=== PATIENT | male | born 1965 | race American Indian/Alaskan Native ===

== ENCOUNTER 2017-10-09 13:23 | Inpatient (IN) | payer MEDICAID, OTHER ==
[2017-10-09 13:27] VITALS: BMI 20.1
[2017-10-09] MEDS ORDERED: Sodium Chloride 0.9% 1,000 ML IV ONE (13:57)
[2017-10-09] MEDS ORDERED: Sodium Chloride 0.9% 1,000 ML ONE (14:05)
[2017-10-09 14:45] LABS: BASO % 1.1 % (0.0-2.0); EOS % 0.4 % (0.0-4.0); HEMOGLOBIN 12.5 g/dL (12.0-18.0); LYMPH # 0.5 K/uL (1.0-4.3); LYMPH % 16.9 % (20.0-40.0); MEAN CELL VOLUME 91.6 fL (80.0-94.0); MEAN CORPUSCULAR HEMOGLOBIN 32.2 pg (27.0-31.0); MEAN CORPUSCULAR HGB CONC 35.1 g/dL (33.0-37.0); MEAN PLATELET VOLUME 10.3 fL (7.2-11.7); MONO # 0.1 K/uL (0.0-0.8); MONO % 4.5 % (0.0-10.0); NEUT # 2.4 K/uL (1.8-7.0); NEUT % 77.1 % (50.0-75.0); RBC 3.9 Mil/uL (4.40-5.90); RED CELL DISTRIBUTION WIDTH 13.8 % (11.5-14.5); WHITE BLOOD COUNT 3.2 K/uL (4.8-10.8)
[2017-10-09 14:54] LABS: PROTHROMBIN TIME 11.3 SECONDS (9.7-12.2)
[2017-10-09 15:23] LABS: URINE BILIRUBIN NEGATIVE (NEGATIVE); URINE BLOOD 1+ (NEGATIVE); URINE CLARITY Hazy (Clear); URINE COLOR Amber (YELLOW); URINE GLUCOSE (UA) NORMAL (Normal); URINE HYALINE CAST 0-2 /lpf (0-2); URINE LEUKOCYTE ESTERASE NEG Leu/uL (Negative); URINE PROTEIN 1+ mg/dL (NEGATIVE)
[2017-10-09 15:30] LABS: BARBITURATES, UR NEGATIVE (NEGATIVE); BENZODIAZEPINES, UR NEGATIVE (NEGATIVE); OPIATES, UR NEGATIVE (NEGATIVE); PHENCYCLIDINE, UR NEGATIVE (NEGATIVE)
--- NOTE | 2017-10-09 15:36 | US ---
HISTORY: alcoholic, ? cirrhosis/GB/panc COMPARISON: None. TECHNIQUE: Sonographic evaluation of the right upper quadrant of the abdomen. FINDINGS: LIVER: Measures 16.8 cm in length. Mildly increased echogenicity of the liver parenchyma suggests diffuse fatty infiltration. No mass. No intrahepatic bile duct dilatation. GALLBLADDER: Unremarkable. No gallstones. COMMON BILE DUCT: Measures 2.3 mm. No stones. No dilatation. PANCREAS: The tail of the pancreas is obscured by overlying bowel gas with remainder unremarkable. RIGHT KIDNEY: Measures 11.7 cm in length. Normal echogenicity. No calculus, mass, or hydronephrosis. AORTA: No aneurysmal dilatation. IVC: Unremarkable. OTHER FINDINGS: None . IMPRESSION: 1. Hepatic steatosis suggested. Liver is otherwise unremarkable appearing. 2. Unremarkable gallbladder and common bile duct. 3. Partial imaging of the pancreas.
[2017-10-09 15:56] LABS: ALT/SGPT 554 U/L (21-72); BLOOD UREA NITROGEN 27 mg/dL (9-20); CALCIUM 9.1 mg/dl (8.6-10.4); GFR AFRICAN-AMERICAN > 60; GFR NON-AFRICAN AMERICAN > 60; LIPASE 1302 U/L (23-300)
[2017-10-09 16:06] LABS: BILIRUBIN,DIRECT 1.1 mg/dL (0.0-0.4)
[2017-10-09 16:25] LABS: AST/SGOT 1109 U/L (17-59)
--- NOTE | 2017-10-09 16:44 | C.PDOC ---
History Of Present Illness 52-year-old male, presents to the emergency department c/o poor appetite and feeling irritable for the past week. Patient has a Hx of EtOH abuse, drinking 15 bottles a day for 20 years, and stopped suddenly one week ago due to periumbilical pain. Denies Hx of pancreatitis, hallucinations. Time Seen by Provider: 10/09/17 13:45 Chief Complaint (Nursing): GI Problem History Per: Patient, EMS Onset/Duration Of Symptoms: Days Current Symptoms Are (Timing): Still Present Past Medical History Reviewed: Historical Data, Nursing Documentation, Vital Signs Vital Signs: Last Vital Signs Temp 98.5 F 10/09/17 18:28 Pulse 96 H 10/09/17 18:28 Resp 18 10/09/17 18:28 BP 126/96 H 10/09/17 18:28 Pulse Ox 99 10/09/17 18:28 Family History: States: No Known Family Hx - Social History Hx Alcohol Use: Yes Hx Substance Use: No - Immunization History Hx Tetanus Toxoid Vaccination: No Hx Influenza Vaccination: No Hx Pneumococcal Vaccination: No Review Of Systems Constitutional: Negative for: Fever Cardiovascular: Negative for: Chest Pain Respiratory: Negative for: Shortness of Breath Gastrointestinal: Positive for: Abdominal Pain. Negative for: Vomiting Musculoskeletal: Negative for: Back Pain Physical Exam - Physical Exam Appears: Non-toxic, No Acute Distress, Other (Thin, black male. No apparent distress) Skin: Warm, Dry, No Rash, No Jaundice Head: Normacephalic Eye(s): bilateral: PERRL Nose: Normal Oral Mucosa: Dry Lips: Normal Appearing Neck: Normal ROM Cardiovascular: Rhythm Regular, No Murmur Respiratory: Normal Breath Sounds, No Accessory Muscle Use Extremity: Normal ROM, No Deformity, No Swelling Neurological/Psych: Oriented x3 ED Course And Treatment - Laboratory Results Result Diagrams: 10/09/17 14:41 10/09/17 15:37 Lab Interpretation: Abnormal (lipase 1300, D. Bili 1.1, T Bili 1.5, AST 1100, ALT 550) O2 Sat by Pulse Oximetry: 100 (RA) Pulse Ox Interpretation: Normal - Radiology CXR: Interpreted by Me CXR Interpretation: Yes: No Acute Disease - Other Rad abd x 2 X-Ray: Interpreted by Me (scant stool, no obst/FA) Progress Note: librium 50 mg PO, IVF, protonix IV Reevaluation Time: 16:43 Reassessment Condition: Improved - Physician Consult Information Outcome Of Conversation: 1630: d/w Hospitalist- Dr. Williams Thurman, ok to admit. Medical Decision Making Medical Decision Making: alcoholic pancreatitis normal epigastric US ETOH withdrawal vs mild dehydration, improved with Librium PO and IVF No s/s of Delirium Disposition Doctor Will See Patient In The: Hospital Counseled Patient/Family Regarding: Studies Performed, Diagnosis - Disposition Disposition: HOSPITALIZED Disposition Time: 16:44 Condition: GOOD - Clinical Impression Clinical Impression: Pancreatitis, alcoholic, acute, Alcohol withdrawal - Scribe Statement The provider has reviewed the documentation as recorded by the Scribe (Erik Marks) All medical record entries made by the Scribe were at my direction and personally dictated by me. I have reviewed the chart and agree that the record accurately reflects my personal performance of the history, physical exam, medical decision making, and the department course for this patient. I have also personally directed, reviewed, and agree with the discharge instructions and disposition.
[2017-10-09] MEDS ORDERED: Lactated Ringer's 1,000 ML IV ONE (17:39)
[2017-10-09] MEDS ORDERED: Lactated Ringer's 1,000 ML IV SCH (17:45)
[2017-10-09] MEDS ORDERED: Iohexol 240 (50 ml) PO ONE (18:11)
[2017-10-09] MEDS ORDERED: Iohexol 240 (50 ml) ONE (18:15)
[2017-10-09] MEDS ORDERED: Multivitamin (MVI) 10 ML, Folic Acid 1 MG in Sodium Chloride 0.9% 1,000 ML IV ONE ×2 (18:15→21:52)
[2017-10-09] MEDS: Multiple Vitamins Tab PO SCH (18:17)
[2017-10-09] MEDS ORDERED: Iodixanol 320 MG/ML 100 ML BOTTLE IV ONE (18:25)
--- NOTE | 2017-10-09 19:21 | CP.PCM.HP ---
History of Present Illness - History of Present Illness History of Present Illness: HPI: Patient is a 52 year old male with no past medical history who comes to the ED complaining of abdominal pain and vomiting. States that the vomiting started 2 days ago and for 2 days he has been unable to keep anything down. Today the patient was able to tolerate 2 cups of soup. He states that the emesis is nonbloody. He is also complaining of abdominal pain, epigastric in nature and radiating the back. The pain has resolved by the time he came to the ED. Nothing makes the pain better or worse. He describes the pain as sharp in nature. He is an alcoholic who drinks every day approximately 2 beers and four shots of scotch. He states that he has not drank in 2 weeks. He has a long history of no appetite and states that he likes to drink instead. This is the first time this kind of event has happened to him. No other associated factors. Denies any chest pain, SOB, palpitations, diarrhea, constipation, numbness, weakness, tingling, syncope. PMH: none PSH: None FH: unremarkable SH: denies tobacco and drugs. Drinks 2 beers (Guinness) and 4 black label scotch. Prior works at [employer] but quit after wouldn't change his shift. Lives with . she works for [employer] Meds: none All: none PMD: none FULL CODE makes decisions if the patient is not capable of making decisions for himself. Her name is Ralf Wilson and her phone number is [phone] Present on Admission - Present on Admission Any Indicators Present on Admission: No Review of Systems - Review of Systems Review of Systems: per hpi Past Patient History - Past Social History Smoking Status: Never Smoked - CARDIAC Hx Cardiac Disorders: No - PSYCHIATRIC Hx Substance Use: No - SURGICAL HISTORY Hx Surgeries: No - ANESTHESIA Hx Anesthesia: No Meds Allergies/Adverse Reactions: Allergies Allergy/AdvReac Type Severity Reaction Status Date / Time No Known Allergies Allergy Verified 10/09/17 13:27 Physical Exam - Constitutional Appears: Well - Head Exam Head Exam: ATRAUMATIC, NORMAL INSPECTION, NORMOCEPHALIC - Eye Exam Eye Exam: EOMI, Normal appearance, PERRL Pupil Exam: NORMAL ACCOMODATION, PERRL - ENT Exam ENT Exam: Mucous Membranes Moist, Normal Exam - Neck Exam Neck exam: Positive for: Normal Inspection - Respiratory Exam Respiratory Exam: Clear to Auscultation Bilateral, NORMAL BREATHING PATTERN - Cardiovascular Exam Cardiovascular Exam: REGULAR RHYTHM - GI/Abdominal Exam GI & Abdominal Exam: Normal Bowel Sounds, Soft, Tenderness (tender to deep palpation of the mid epigastrum) - Extremities Exam Extremities exam: Positive for: normal inspection - Back Exam Back exam: NORMAL INSPECTION - Neurological Exam Neurological exam: Alert, CN II-XII Intact, Normal Gait, Oriented x3, Reflexes Normal - Psychiatric Exam Psychiatric exam: Normal Affect, Normal Mood - Skin Skin Exam: Dry, Intact, Normal Color, Warm Results - Vital Signs Recent Vital Signs: Last Vital Signs Temp 98.5 F 10/09/17 18:28 Pulse 96 H 10/09/17 18:28 Resp 18 10/09/17 18:28 BP 126/96 H 10/09/17 18:28 Pulse Ox 100 10/09/17 18:33 - Labs Result Diagrams: 10/09/17 14:41 10/09/17 15:37 Labs: Laboratory Results - last 24 hr 10/09/17 10/09/17 10/09/17 14:41 14:41 14:41 WBC 3.2 L RBC 3.90 L Hgb 12.5 Hct 35.7 MCV 91.6 MCH 32.2 H MCHC 35.1 RDW 13.8 Plt Count 77 L MPV 10.3 Neut % (Auto) 77.1 H Lymph % (Auto) 16.9 L [place] % (Auto) 4.5 Eos % (Auto) 0.4 Baso % (Auto) 1.1 Neut # (Auto) 2.4 Lymph # (Auto) 0.5 L [place] # (Auto) 0.1 Eos # (Auto) 0.0 Baso # (Auto) 0.0 Differential Comment PT 11.3 INR 1.0 APTT 24 Sodium Potassium Chloride Carbon Dioxide Anion Gap BUN Creatinine Est GFR ( Amer) Est GFR (Non-Af Amer) Random Glucose Calcium Total Bilirubin Direct Bilirubin AST ALT Alkaline Phosphatase Total Protein Albumin Globulin Albumin/Globulin Ratio Lipase Urine Color Sally Urine Clarity Hazy Urine pH 5.0 Ur Specific [place] 1.023 Urine Protein 1+ H Urine Glucose (UA) Normal Urine Ketones Negative Urine Blood 1+ H Urine Nitrate Negative Urine Bilirubin Negative Urine Urobilinogen 4.0 Ur Leukocyte Esterase Neg Urine WBC (Auto) 3 Urine RBC (Auto) 5 H Hyaline Casts 0-2 Urine Opiates Screen Urine Methadone Screen Ur Barbiturates Screen Ur Phencyclidine Scrn Ur Amphetamines Screen U Benzodiazepines Scrn U Oth Cocaine Metabols U Cannabinoids Screen Alcohol, Quantitative 10/09/17 10/09/17 10/09/17 14:41 15:37 15:48 WBC RBC Hgb Hct MCV MCH MCHC RDW Plt Count MPV Neut % (Auto) Lymph % (Auto) [place] % (Auto) Eos % (Auto) Baso % (Auto) Neut # (Auto) Lymph # (Auto) [place] # (Auto) Eos # (Auto) Baso # (Auto) Differential Comment PT INR APTT Sodium 134 Potassium 3.5 L Chloride 96 L Carbon Dioxide 26 Anion Gap 16 BUN 27 H Creatinine 1.1 Est GFR ( Amer) > 60 Est GFR (Non-Af Amer) > 60 Random Glucose 98 Calcium 9.1 Total Bilirubin 1.5 H Direct Bilirubin 1.1 H AST 1109 H ALT 554 H Alkaline Phosphatase 87 Total Protein 8.2 Albumin 4.0 Globulin 4.2 H Albumin/Globulin Ratio 1.0 Lipase 1302 H Urine Color Urine Clarity Urine pH Ur Specific [place] Urine Protein Urine Glucose (UA) Urine Ketones Urine Blood Urine Nitrate Urine Bilirubin Urine Urobilinogen Ur Leukocyte Esterase Urine WBC (Auto) Urine RBC (Auto) Hyaline Casts Urine Opiates Screen Negative Urine Methadone Screen Negative Ur Barbiturates Screen Negative Ur Phencyclidine Scrn Negative Ur Amphetamines Screen Negative U Benzodiazepines Scrn Negative U Oth Cocaine Metabols Negative U Cannabinoids Screen Negative Alcohol, Quantitative < 10 Assessment & Plan (1) Pancreatitis, alcoholic, acute Assessment and Plan: Likely 2/2 to alcohol use but f/u up lipid panel NPO ED gave 1L NS I gave 1 L of LR and banana bag in ED LRD5 @ 150 to replace suspected fluid deficit of 4-6L. Will be replaced by ~ 0700. f/u CT a/p Status: Acute Priority: High (2) Alcohol abuse Assessment and Plan: banana bag x1 thiamine 100 QD folic acid 1mg PO QD multivitamin PO QD librium 25 PO Q6H PRN Status: Chronic Priority: High (3) Abnormal LFTs Assessment and Plan: 2/2 to alcohol use hep panel hiv f/u ct a/p Status: Acute Priority: High (4) Thrombocytopenia Assessment and Plan: 2/2 bone marrow suppression from etoh use hold anticoagulation f/u hiv Status: Acute (5) Microscopic hematuria Assessment and Plan: monitor after hydration b/l renal and bladder US as outpatient Status: Acute (6) Prophylactic measure Assessment and Plan: no GI ppx indicated dvt risk score 1 - scd anticoag CI due to thrombocytopenia Status: Acute
[2017-10-09 21:01] LABS: ARTERIAL BLOOD GAS HCO3 25.5 mmol/L (21-28); ARTERIAL BLOOD GAS O2 SAT 30.1 % (95-98); ARTERIAL BLOOD GAS PCO2 44 mm/Hg (35-45); ARTERIAL BLOOD GAS PH 7.42 (7.35-7.45); ARTERIAL BLOOD GAS PO2 16 mm/Hg (80-100); ARTERIAL BLOOD GAS TCO2 29.9 mmol/L (22-28)
--- NOTE | 2017-10-09 21:43 | CT ---
EXAM: CT Abdomen and Pelvis With Intravenous Contrast CLINICAL HISTORY: 52 years old, male; Pain; Abdominal pain; Additional info: R/O necrotizing /pancreatic cysts TECHNIQUE: Axial computed tomography images of the abdomen and pelvis with intravenous contrast. All CT scans at this facility use one or more dose reduction techniques, viz.: automated exposure control; ma/kV adjustment per patient size (including targeted exams where dose is matched to indication; i.e. head); or iterative reconstruction technique. Coronal and sagittal reformatted images were created and reviewed. CONTRAST: 100 mL of [id number] administered intravenously. COMPARISON: No relevant prior studies available. FINDINGS: Limitations: Motion artifact - mild. Lung bases: No acute findings. ABDOMEN: Liver: Fatty infiltration. Gallbladder and bile ducts: No calcified stones. No ductal dilation. Pancreas: No definite pancreatic necrosis. No ductal dilation. No definite peripancreatic stranding. No discrete peripancreatic collection. Spleen: No splenomegaly. Adrenals: No mass. Kidneys and ureters: Minimal to mild stranding about kidneys, nonspecific. No hydronephrosis. Stomach and bowel: No definite mural thickening. No obstruction. Appendix: No findings to suggest acute appendicitis. PELVIS: Bladder: Unremarkable. Reproductive: Unremarkable as visualized. ABDOMEN and PELVIS: Intraperitoneal space: No significant fluid collection. No free air. Bones/joints: Early degenerative changes of spine. No acute fracture. Several scattered sclerotic lesions, nonspecific. Soft tissues: Tiny umbilical hernia containing fat. Vasculature: Unremarkable. No aneurysm. Lymph nodes: No pathologically enlarged lymph nodes. IMPRESSION: 1. No definite CT evidence of pancreatitis or complications related to pancreatitis. 2. Perinephric stranding, nonspecific. Correlate with urinalysis to exclude infection. 3. Sclerotic bone lesions, nonspecific. Recommend nonemergent bone scan. 4. Incidental/non-acute findings are described above.
[2017-10-09] MEDS: Dextrose 5%/Lactated Ringer's 1,000 ML IV SCH (22:15)
[2017-10-10] MEDS: Dextrose 5%/Lactated Ringer's 1,000 ML IV SCH (04:30)
--- NOTE | 2017-10-10 07:18 | RAD ---
PROCEDURE: Radiographs of the chest and abdomen (obstructive series) HISTORY: abd pain COMPARISON: No prior. TECHNIQUE: AP radiograph of the chest, with upright and supine radiographs of the abdomen. FINDINGS: CHEST: Lungs: Clear. Cardiovascular: Normal size heart. No pulmonary vascular congestion. Pleura: No pleural fluid. No pneumothorax. Other findings: None. ABDOMEN AND PELVIS: Bowel: Unremarkable bowel gas pattern. No evidence of mechanical obstruction. Free air: None. Bones: Unremarkable. Other findings: No abnormal intra-abdominal calcifications identified. Calcifications in the inferior pelvis are too lateral to reflect urolithiasis bilaterally unlikely represent phleboliths. IMPRESSION: Unremarkable radiographs of chest and abdomen. No evidence of mechanical bowel obstruction.
[2017-10-10] MEDS: Multiple Vitamins Tab PO SCH (09:46)
--- NOTE | 2017-10-10 10:59 | CP.PCM.PN ---
Subjective - Date & Time of Evaluation Date of Evaluation: 10/10/17 Time of Evaluation: 10:30 - Subjective Subjective: Hospitalist Progress Note Patient was seen and examined at 10:30 AM 10/10/17 Bed 653 B Very pleasant 52 year old male who was admitted on evening 10/09/17 for further treatment of Pancreatitis. Although CT Abdomen Pelvis did not show evidence of Pancreatitis, he had 2 out of 3 criteria present: lipase elevated 3x upper limit of normal and epigastric pain. He was continued on aggressive hydration with LR. He is doing well on morning of 10/10/17 and therefore he was started on Clera Liquid Diet which he tolerated well without any issues. His will be bringing in some soup later today. Should the patient continue to improve clinically he was informed that he will be discharged on morning of 10/11/17. He was counseled on abstaining from alcohol and stated that he would appreciate AA meeting information upon discharge. Upon FULL ROS Epigastric Abdominal pain is minimal at this time and comes and goes NO dysphagia/odynopahgia NO soreness in throat NO cough/SOB/Wheezing NO sinus/nasal congestion NO fever/chills NO muscle aches/pains NO joint pain NO chest pain/palpations NO n/v/d/c: NO black or bloody bowel movements NO burning pain with urination NO MASON NO lightheadedness/dizziness NO paresthesias NO new changes in vision/eye pain/loss of vision NO new changes in hearing/ear pain/tinnitus Exam: General: AAOX3, NAD HEENT: NCA, EOMI, PERRLA, NO cervical/supraclavicular/submandibular lymphadenopathy, NO pharyngeal erythema/exudate, Nasal Turbinates are nonerythematous/nonedematous, Oral Mucosa is moist Cardio: NS1 and NS2, NO M/R/G Resp: CTA B/L, NO R/R/W GI: BSx4, Soft, ND, NO HSM, NO guarding/rebound tenderness, Mild tendnerness to palpation in the epigastric area that is described as "pressure" nonradiating Ext: Pulses are strong and equal, Capillary Refill is 2 seconds, NO edema Neuro: CN II through XII are grossly intact Assessment & Plan (1) Pancreatitis, alcoholic, acute Assessment and Plan: Likely 2/2 to alcohol abuse: he will need AA information upon discharge Clear Liquid Diet for now: to bring in soup from home later today CT Abdomen/Pelvis: No definite evidence of pancreatitis or complications related to pancreatitis Perinephric stranding, nonspecific Sclerotic bone lesions Status: Acute Priority: High (2) Sclerotic Bone Lesions As seen on CT Abdomen/Pelvis Will need to have Bone Scan performed as an outpatient Status: Chronic 3) Nonspecific Perinephric Stranding UA does not indicate any evidence of infection NO CVA tenderness on exam NO urinary complaints Monitor for now Status: Acute (4) Alcohol abuse Assessment and Plan: Given Banana bag x1 10/09/17 Thiamine 100 QD Folic acid 1mg PO QD Multivitamin PO QD Librium 25 PO Q6H PRN signs of withdrawl of which there are none at the time of exam this morning Status: Chronic Priority: High (5) Abnormal LFTs Assessment and Plan: 2/2 to alcohol use F/U Hepatitis Panel F/U HIV 4th Generation Status: Acute Priority: High (6) Thrombocytopenia/Leukopenia Assessment and Plan: 2/2 bone marrow suppression from etoh use NO anticoagulation F/U HIV 4th Generation Status: Acute (7) Microscopic hematuria Assessment and Plan: Will need bilateral renal ultrasound as an outpatient Status: Acute (8) Prophylactic measure Assessment and Plan: No GI ppx indicated DVT risk score 1 - scd Anticoagulation contraindicated due to thrombocytopenia\\ Clear liquid diet for now Status: Acute Disposition: If you continues to have NO more issues with advancement of diet, then discharge in the morning 10/11/17. He will need to be provided with [facility] [phone] for coordination of his care. He will need to have U/S Renal/Bladder (for his microscopic hematuria) and Bone Scan (for sclerotic lesions on CT Abdomen/Pelvis) performed as an outpatient through the clinic. He will also need AA information to be given to him near his address. Medicine Team please also speak with Lead Applier/Electrical Unit Rebuilder to make sure that patient has applied for [facility]. Jean Thurman D.O. Objective - Vital Signs/Intake and Output Vital Signs (last 24 hours): Temp Pulse Resp BP Pulse Ox 98.9 F 86 20 121/78 100 10/10/17 07:00 10/10/17 07:00 10/10/17 07:00 10/10/17 07:00 10/10/17 07:00 - Medications Medications: Current Medications Chlordiazepoxide (Librium) 25 mg PO Q6 PRN PRN Reason: Seizure activity Folic Acid (Folic Acid) 1 mg PO DAILY [facility] Last Admin: 10/10/17 09:46 Dose: 1 mg Dextrose/Lactated Ringer's (Dextrose 5%/Lactated Ringer's) 1,000 mls @ 150 mls/ hr IV .Q6H40M [facility] Last Admin: 10/10/17 04:30 Dose: Not Given Multivitamins (Hexavitamin) 1 tab PO DAILY [facility] Last Admin: 10/10/17 09:46 Dose: 1 tab Ondansetron HCl (Zofran Inj) 4 mg IVP Q8 PRN PRN Reason: Nausea/Vomiting Thiamine HCl (Vitamin B1 Tab) 100 mg PO DAILY [facility] Last Admin: 10/10/17 09:46 Dose: 100 mg - Labs Labs: 10/09/17 14:41 10/09/17 15:37 PT 11.3 SECONDS (9.7-12.2) 10/09/17 14:41 INR 1.0 10/09/17 14:41 APTT 24 SECONDS (21-34) 10/09/17 14:41
[2017-10-10 12:00] LABS: BASO % 0.9 % (0.0-2.0); EOS # 0.1 K/uL (0.0-0.7); EOS % 2.2 % (0.0-4.0); HEMOGLOBIN 11.3 g/dL (12.0-18.0); LYMPH # 0.9 K/uL (1.0-4.3); LYMPH % 27.6 % (20.0-40.0); MEAN CORPUSCULAR HGB CONC 34.4 g/dL (33.0-37.0); MEAN PLATELET VOLUME 9.6 fL (7.2-11.7); MONO # 0.3 K/uL (0.0-0.8); MONO % 10.9 % (0.0-10.0); NEUT # 1.8 K/uL (1.8-7.0); NEUT % 58.4 % (50.0-75.0); NRBC % 0.1 % (0.0-2.0); RBC 3.54 Mil/uL (4.40-5.90); WHITE BLOOD COUNT 3.1 K/uL (4.8-10.8)
[2017-10-10] MEDS: Lactated Ringer's 1,000 ML IV SCH ×2 (12:00→21:30)
[2017-10-10 12:19] LABS: LDL CHOLESTEROL 79 mg/dL (0-129)
[2017-10-10 12:36] LABS: ALB/GLOB RATIO 0.9 (1.0-2.1); ALBUMIN 3.3 g/dL (3.5-5.0); ALT/SGPT 484 U/L (21-72); AST/SGOT 745 U/L (17-59); BLOOD UREA NITROGEN 17 mg/dL (9-20); CALCIUM 9.2 mg/dl (8.6-10.4); GFR AFRICAN-AMERICAN > 60; GFR NON-AFRICAN AMERICAN > 60; HDL CHOLESTEROL 41 mg/dL (30-70)
[2017-10-11] MEDS: Lactated Ringer's 1,000 ML IV SCH (06:42)
[2017-10-11 06:47] LABS: BASO % 0.7 % (0.0-2.0); EOS # 0.1 K/uL (0.0-0.7); EOS % 1.7 % (0.0-4.0); HEMOGLOBIN 10.7 g/dL (12.0-18.0); LYMPH # 1.1 K/uL (1.0-4.3); LYMPH % 28.9 % (20.0-40.0); MEAN CORPUSCULAR HEMOGLOBIN 31.8 pg (27.0-31.0); MEAN CORPUSCULAR HGB CONC 34.2 g/dL (33.0-37.0); MEAN PLATELET VOLUME 9.2 fL (7.2-11.7); MONO # 0.6 K/uL (0.0-0.8); MONO % 15.7 % (0.0-10.0); NEUT # 2.1 K/uL (1.8-7.0); RBC 3.35 Mil/uL (4.40-5.90); RED CELL DISTRIBUTION WIDTH 13.9 % (11.5-14.5); WHITE BLOOD COUNT 3.9 K/uL (4.8-10.8)
[2017-10-11 08:03] VITALS: BP 145/93; PULSE 88; RESP 18; TEMP 97.7; O2SAT 100
[2017-10-11 08:13] LABS: ALBUMIN 3.2 g/dL (3.5-5.0); ALT/SGPT 405 U/L (21-72); AST/SGOT 563 U/L (17-59); BLOOD UREA NITROGEN 12 mg/dL (9-20); CALCIUM 8.7 mg/dl (8.6-10.4); GFR AFRICAN-AMERICAN > 60; GFR NON-AFRICAN AMERICAN > 60; LIPASE 1433 U/L (23-300)
[2017-10-11] MEDS ORDERED: Potassium Chloride 20 mEq ER Tab PO ONE (08:57)
[2017-10-11 09:21] LABS: HEPATITIS B SURFACE AG Negative (NEGATIVE)
[2017-10-11 09:27] LABS: HEPATITIS A IGM NEGATIVE (NEGATIVE); HEPATITIS B CORE AB NEGATIVE (NEGATIVE)
[2017-10-11] MEDS: Multiple Vitamins Tab PO SCH (09:29)
[2017-10-11 09:38] LABS: HEPATITIS C ANTIBODY NEGATIVE (NEGATIVE)
--- NOTE | 2017-10-11 13:42 | CP.PCM.DIS ---
Provider - Provider Date of Admission: 10/09/17 16:40 Attending physician: Jean Thurman MD Time Spent in preparation of Discharge (in minutes): 35 Diagnosis - Discharge Diagnosis (1) Pancreatitis, alcoholic, acute Status: Acute Priority: High Hospital Course - Lab Results Lab Results: Most Recent Lab Values WBC 3.9 K/uL (4.8-10.8) L 10/11/17 06:40 RBC 3.35 Mil/uL (4.40-5.90) L 10/11/17 06:40 Hgb 10.7 g/dL (12.0-18.0) L 10/11/17 06:40 Hct 31.2 % (35.0-51.0) L 10/11/17 06:40 MCV 93.0 fL (80.0-94.0) 10/11/17 06:40 MCH 31.8 pg (27.0-31.0) H 10/11/17 06:40 MCHC 34.2 g/dL (33.0-37.0) 10/11/17 06:40 RDW 13.9 % (11.5-14.5) 10/11/17 06:40 Plt Count 60 K/uL (130-400) L D 10/11/17 06:40 MPV 9.2 fL (7.2-11.7) 10/11/17 06:40 Neut % (Auto) 53.0 % (50.0-75.0) 10/11/17 06:40 Lymph % (Auto) 28.9 % (20.0-40.0) 10/11/17 06:40 Tucker % (Auto) 15.7 % (0.0-10.0) H 10/11/17 06:40 Eos % (Auto) 1.7 % (0.0-4.0) 10/11/17 06:40 Baso % (Auto) 0.7 % (0.0-2.0) 10/11/17 06:40 Neut # (Auto) 2.1 K/uL (1.8-7.0) 10/11/17 06:40 Lymph # (Auto) 1.1 K/uL (1.0-4.3) 10/11/17 06:40 Tucker # (Auto) 0.6 K/uL (0.0-0.8) 10/11/17 06:40 Eos # (Auto) 0.1 K/uL (0.0-0.7) 10/11/17 06:40 Baso # (Auto) 0.0 K/uL (0.0-0.2) 10/11/17 06:40 Differential Comment 10/09/17 14:41 PT 11.3 SECONDS (9.7-12.2) 10/09/17 14:41 INR 1.0 10/09/17 14:41 APTT 24 SECONDS (21-34) 10/09/17 14:41 Puncture Site Venous 10/09/17 20:58 pCO2 44 mm/Hg (35-45) 10/09/17 20:58 pO2 16 mm/Hg (80-100) L* 10/09/17 20:58 HCO3 25.5 mmol/L (21-28) 10/09/17 20:58 ABG pH 7.42 (7.35-7.45) 10/09/17 20:58 ABG Total CO2 29.9 mmol/L (22-28) H 10/09/17 20:58 ABG O2 Saturation 30.1 % (95-98) L 10/09/17 20:58 ABG Base Excess 3.4 mmol/L (-2.0-3.0) H 10/09/17 20:58 Caio Test Na 10/09/17 20:58 ABG Potassium 3.1 mmol/L (3.6-5.2) L 10/09/17 20:58 Sodium 136.0 mmol/l (132-148) 10/09/17 20:58 Chloride 102.0 mmol/L (98-107) 10/09/17 20:58 Glucose 82 mg/dl (75-110) 10/09/17 20:58 Lactate 0.9 mmol/L (0.7-2.1) 10/09/17 20:58 Sodium 138 mmol/L (132-148) 10/11/17 06:40 Potassium 3.2 mmol/L (3.6-5.2) L 10/11/17 06:40 Chloride 98 mmol/L (98-107) 10/11/17 06:40 Carbon Dioxide 27 mmol/L (22-30) 10/11/17 06:40 Anion Gap 16 (10-20) 10/11/17 06:40 BUN 12 mg/dL (9-20) 10/11/17 06:40 Creatinine 1.0 mg/dL (0.8-1.5) 10/11/17 06:40 Est GFR ( Amer) > 60 10/11/17 06:40 Est GFR (Non-Af Amer) > 60 10/11/17 06:40 Random Glucose 87 mg/dL (75-110) 10/11/17 06:40 Calcium 8.7 mg/dl (8.6-10.4) 10/11/17 06:40 Phosphorus 3.1 mg/dL (2.5-4.5) 10/10/17 11:50 Magnesium 2.0 mg/dL (1.6-2.3) 10/10/17 11:50 Total Bilirubin 0.6 mg/dL (0.2-1.3) 10/11/17 06:40 Direct Bilirubin 1.1 mg/dL (0.0-0.4) H 10/09/17 15:48 AST 563 U/L (17-59) H D 10/11/17 06:40 ALT 405 U/L (21-72) H 10/11/17 06:40 Alkaline Phosphatase 66 U/L (38-126) 10/11/17 06:40 Lactate Dehydrogenase 1952 U/L (313-618) H 10/09/17 21:10 Total Protein 6.4 g/dL (6.3-8.3) 10/11/17 06:40 Albumin 3.2 g/dL (3.5-5.0) L 10/11/17 06:40 Globulin 3.2 gm/dL (2.2-3.9) 10/11/17 06:40 Albumin/Globulin Ratio 1.0 (1.0-2.1) 10/11/17 06:40 Triglycerides 81 mg/dL (0-149) 10/10/17 11:50 Cholesterol 158 mg/dL (0-199) 10/10/17 11:50 LDL Cholesterol Direct 79 mg/dL (0-129) 10/10/17 11:50 HDL Cholesterol 41 mg/dL (30-70) 10/10/17 11:50 Lipase 1433 U/L (23-300) H 10/11/17 06:40 Free T4 0.92 ng/dL (0.78-2.19) 10/10/17 07:36 TSH 3rd Generation 1.81 mIU/L (0.46-4.68) 10/10/17 07:36 Arterial Blood Potassium 3.1 mmol/L (3.6-5.2) L 10/09/17 20:58 Urine Color Sally (YELLOW) 10/09/17 14:41 Urine Clarity Hazy (Clear) 10/09/17 14:41 Urine pH 5.0 (5.0-8.0) 10/09/17 14:41 Ur Specific Roscoe 1.023 (1.003-1.030) 10/09/17 14:41 Urine Protein 1+ mg/dL (NEGATIVE) H 10/09/17 14:41 Urine Glucose (UA) Normal mg/dL (Normal) 10/09/17 14:41 Urine Ketones Negative mg/dL (NEGATIVE) 10/09/17 14:41 Urine Blood 1+ (NEGATIVE) H 10/09/17 14:41 Urine Nitrate Negative (NEGATIVE) 10/09/17 14:41 Urine Bilirubin Negative (NEGATIVE) 10/09/17 14:41 Urine Urobilinogen 4.0 mg/dL (0.2-1.0) 10/09/17 14:41 Ur Leukocyte Esterase Neg Slade/uL (Negative) 10/09/17 14:41 Urine WBC (Auto) 3 /hpf (0-5) 10/09/17 14:41 Urine RBC (Auto) 5 /hpf (0-3) H 10/09/17 14:41 Hyaline Casts 0-2 /lpf (0-2) 10/09/17 14:41 Urine Opiates Screen Negative (NEGATIVE) 10/09/17 14:41 Urine Methadone Screen Negative (NEGATIVE) 10/09/17 14:41 Ur Barbiturates Screen Negative (NEGATIVE) 10/09/17 14:41 Ur Phencyclidine Scrn Negative (NEGATIVE) 10/09/17 14:41 Ur Amphetamines Screen Negative (NEGATIVE) 10/09/17 14:41 U Benzodiazepines Scrn Negative (NEGATIVE) 10/09/17 14:41 U Oth Cocaine Metabols Negative (NEGATIVE) 10/09/17 14:41 U Cannabinoids Screen Negative (NEGATIVE) 10/09/17 14:41 Alcohol, Quantitative < 10 mg/dl (0-10) 10/09/17 15:48 Hepatitis A IgM Ab Negative (NEGATIVE) 10/10/17 07:36 Hep Bs Antigen Negative (NEGATIVE) 10/10/17 07:36 Hep B Core IgM Ab Negative (NEGATIVE) 10/10/17 07:36 Hepatitis C Antibody Negative (NEGATIVE) 10/10/17 07:36 - Hospital Course Hospital Course: Upon admission: Patient is a 52 year old male with no past medical history who comes to the ED complaining of abdominal pain and vomiting. States that the vomiting started 2 days ago and for 2 days he has been unable to keep anything down. Today the patient was able to tolerate 2 cups of soup. He states that the emesis is nonbloody. He is also complaining of abdominal pain, epigastric in nature and radiating the back. The pain has resolved by the time he came to the ED. Nothing makes the pain better or worse. He describes the pain as sharp in nature. He is an alcoholic who drinks every day approximately 2 beers and four shots of scotch. He states that he has not drank in 2 weeks. He has a long history of no appetite and states that he likes to drink instead. This is the first time this kind of event has happened to him. No other associated factors. Denies any chest pain, SOB, palpitations, diarrhea, constipation, numbness, weakness, tingling, syncope. Hospital course: Patient was admitted for alcoholic pancreatitis. He was made NPO and diet was advanced as tolerated. Patient was given fluids and showed clinical improvement. Patient was cleared for discharge with the following instructions: Please [facility] for [facility] of care ([phone]). You will need to have U/S Renal/Bladder (for microscopic hematuria) and Bone Scan (for sclerotic lesions on CT Abdomen/Pelvis) performed as an outpatient through the clinic. Please locate your nearest AA for help with quitting alcohol to prevent future episodes of pancreatitis and to increase your overall health. Please note that this is a summary of events. For more details, please see complete medical record. Discharge Exam - Head Exam Head Exam: ATRAUMATIC, NORMAL INSPECTION, NORMOCEPHALIC - Eye Exam Eye Exam: EOMI, Normal appearance, PERRL - ENT Exam ENT Exam: Mucous Membranes Moist - Respiratory Exam Respiratory Exam: Clear to PA & Lateral, NORMAL BREATHING PATTERN, UNREMARKABLE - Cardiovascular Exam Cardiovascular Exam: RRR, +S1, +S2 - GI/Abdominal Exam GI & Abdominal Exam: Normal Bowel Sounds, Soft, Unremarkable. absent: Tenderness - Extremities Exam Extremities exam: normal inspection - Neurological Exam Neurological exam: Alert, Oriented x3 - Psychiatric Exam Psychiatric exam: Normal Affect, Normal Mood - Skin Skin Exam: Dry, Intact, Normal Color, Warm Discharge Plan - Follow Up Plan Condition: GOOD Disposition: HOME/ ROUTINE Instructions: Alcohol Withdrawal (DC), Alcohol Abuse and Alcoholism (DC), Effects of Alcohol on Your Health Additional Instructions: Please follow up with the [facility] downstairs for coordination of care ([phone]). You will need to have U/S Renal/Bladder (for microscopic hematuria) and Bone Scan (for sclerotic lesions on CT Abdomen/Pelvis) performed as an outpatient through the clinic. Please locate your nearest AA for help with quitting alcohol to prevent future episodes of pancreatitis and to increase your overall health. Referrals: Alcoholics Anonymous [Outside] [facility] [Outside]
--- NOTE | 2017-10-12 22:09 | CARD ---
APPROVED REPORT EKG Measurement Heart [id number] <Conclusion> Sinus tachycardia Otherwise normal ECG
== END 2017-10-11 12:47 | disposition home or self-care (01) | DRG 439 ==
LOC: C.ER 13:23 → C.9E 16:40 → C.6T 18:19
PROVIDERS: ADMIT Family Medicine; ATTEND Family Medicine
DX: K85.20 Alcohol induced acute pancreatitis without necrosis or infection (principal); F10.239 Alcohol dependence with withdrawal, unspecified; R31.29 Other microscopic hematuria; R79.89 Other specified abnormal findings of blood chemistry; D69.59 Other secondary thrombocytopenia; D75.89 Other specified diseases of blood and blood-forming organs; Y90.0 Blood alcohol level of less than 20 mg/100 ml